=== PATIENT | female | born 1955 | race Caucasian/White ===

== ENCOUNTER 2020-08-18 14:56 | Emergency (ER) | payer MEDICARE, OTHER ==
[~2020-08-18 14:56] MED LIST: ATORVASTATIN CA20 MG PO; BISOPROLOL-HCT1 EACH PO; HYDROXYZINE HCL25 MG PO; NORCO 7.5-3251 EACH PO; NORVASC 5 MG TAB5 MG PO; OMEPRAZOLE20 MG PO; ULTRAM50 MG PO; VITAMIN D22000 UNIT PO; ZOFRAN4 MG PO
[2020-08-18] MEDS ORDERED: NORVASC10 MG PO (17:58)
== END 2020-08-18 18:18 | disposition home or self-care (01) ==
LOC: ER1 14:56
DX: I10 Essential (primary) hypertension (principal); U07.1 COVID-19
CPT/HCPCS: 99283

== ENCOUNTER → 2021-01-05 | Outpatient (CLI) | payer MEDICARE, OTHER ==
[~2021-01-05] MED LIST changes: +NORVASC10 MG PO
== END ==
LOC: EXRD 10:55
DX: R09.89 Other specified symptoms and signs involving the circulatory and respiratory systems (principal)
CPT/HCPCS: 93880

== ENCOUNTER → 2021-09-14 | Outpatient (CLI) | payer MEDICARE, OTHER | LOC: EXRD 09:43 | DX: K76.0 Fatty (change of) liver, not elsewhere classified (principal) | CPT/HCPCS: 76700 ==

== ENCOUNTER → 2022-02-25 | Outpatient (CLI) | payer MEDICARE, OTHER | LOC: KOH-I 13:15 | DX: M25.512 Pain in left shoulder (principal); M25.511 Pain in right shoulder | CPT/HCPCS: 73030 ==